=== PATIENT | female | born 1945 | race Caucasian/White ===

== ENCOUNTER 2017-06-10 05:28 | Inpatient (IN) | payer OTHER ==
[2017-06-10] MEDS ORDERED: morphINE PF 5 MG/10 ML INJ IT ONE (05:34)
[2017-06-10] MEDS ORDERED: fentaNYL 100 MCG/2 ML INJ IT ONE (05:34)
[2017-06-10] MEDS ORDERED: ceFAZolin 2 GM/SWFI 2 GM/20 ML SYR IVP ONE (05:34)
[2017-06-10] MEDS ORDERED: LR 1,000 ML IV ONE (05:35)
[2017-06-10] MEDS ORDERED: LIDOCAINE 1% 2 ML INJ ID PRN (05:35)
[2017-06-10] MEDS ORDERED: THROMBIN (BOVINE) 5,000 UNIT VIAL TP ONE (06:44)
[2017-06-10] MEDS ORDERED: CHLORHEXIDINE GLUC HIBICLENS 118 ML BTL TP ONE (06:44)
[2017-06-10] MEDS ORDERED: BACITRACIN 50,000 UNITS/10 ML SYR IRR ONE (06:44)
[2017-06-10] MEDS ORDERED: BUPIVACAINE 0.25% 30 ML SDV ONE (06:44)
--- NOTE | 2017-06-10 06:48 | PDANEPAE ---
ANE History of Present Illness 72 yo female with L leg paresthesia/pain for L4/L5 lum lange and TLIF. 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 - Endocrine History Hx Diabetes: No Hypothyroid: No Hyperthyroid: No Obesity: no Endocrine History Comment: hx of hypothyroidism- resolved - Renal History Hx Renal Disorders: Yes Renal History Comment: 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 hx of reflux - Other Health History Other Health History: wears bilateral hearing aides- not regularly. wears reading glasses - Chronic Pain History Chronic Pain: Yes (left leg pain) - Surgical History Prior Surgeries: knee scope- left 12/2015. l4-5 laminectomy 04/2016. finger surgeries- a few. 25 yrs ago- kidney obstruction repair. bunionectomy- bilateral ANE Review of Systems Review of Systems: - Exercise capacity METS (RN): 4 METS - Systems Constitutional: Reports: no symptoms EENMT: Reports: other (cold sore on nose) Respiratory: Reports: no symptoms ANE Patient History - Allergies Allergies/Adverse Reactions: No Known Allergies Allergy (Verified 05/14/17 15:22) - Home Medications Home Medications: Calcium Carb W/Vit D [Calcium Carb W/Vit D 500/200 (*)] 1,000 mg PO Q2D [Last Taken 06/06/17] Calcium Carb W/Vit D [Calcium Carb W/Vit D 500/200 (*)] 500 mg PO Q2D 05/14/17 [ Last Taken 06/06/17] Cholecalciferol Vit D3 [Vitamin D3 (*)] 2,500 units PO DAILY 05/14/17 [Last Taken 06/06/17] Cyanocobalamin [Vitamin B12 (*)] 2,500 mcg PO DAILY 05/14/17 [Last Taken ] Econazole Nitrate 1 norman TP HS 05/14/17 [Last Taken 06/10/17] Gabapentin [Neurontin 100 MG (*)] 200 mg PO BID@08,12 05/14/17 [Last Taken 06/09] Gabapentin [Neurontin 100 MG (*)] 300 mg PO HS 05/14/17 [Last Taken 06/09/17] Herbals/Supplements -Info Only 1 ea PO DAILY 05/14/17 [Last Taken 06/06/17] Meloxicam 15 mg PO DAILY 05/14/17 [Last Taken 06/04/17] Valacyclovir HCl [Valtrex] 1,000 mg PO BID PRN 05/14/17 [Last Taken 06/09/17] cycloSPORINE 0.05% [Restasis Opht Drops(*)] 1 drop EACHEYE BID 05/14/17 [Last Taken 06/09/17] - NPO status NPO Since - Liquids (Date): 06/10/17 NPO Since - Liquids (Time): 03:30 NPO Since - Solids (Date): 06/09/17 NPO Since - Solids (Time): 19:00 - Anes Hx Anes Hx: no prior problems - Smoking Hx Smoking Status: Never smoked - Alcohol Use Alcohol Use: None - Family Anes Hx Family Anes Hx: none Family Hx Anesthesia Complications: none ANE Labs/Vital Signs - Labs - BMP Creatinine: 0.7 - Vital Signs Blood Pressure: 126/84 Heart Rate: 66 Respiratory Rate: 12 O2 Sat (%): 93 Height: 162.56 cm Weight: 57.153 kg ANE Physical Exam - Airway Neck exam: FROM Mallampati Score: Class 1 Mouth exam: normal dental/mouth exam - Pulmonary Pulmonary: clear to auscultation - Cardiovascular Cardiovascular: regular rate and rhythym - ASA Status ASA Status: II ANE Anesthesia Plan Anesthesia Plan: general endotracheal anesthesia Lines/Monitors: additional IV
[2017-06-10] MEDS ORDERED: ROCURONIUM 50 MG/5 ML VIAL ONE (06:51)
[2017-06-10] MEDS ORDERED: fentaNYL 100 MCG/2 ML INJ ONE ×5 (06:52→11:55)
[2017-06-10] MEDS ORDERED: DEXAMETHASONE 4 MG/ML VIAL ONE ×2 (06:52→08:20)
[2017-06-10] MEDS ORDERED: REMIFENTANIL HCL 1 MG VIAL ONE (06:52)
[2017-06-10] MEDS ORDERED: PROPOFOL/EMULSION 500 MG/50 ML BOTTLE IV ONE ×2 (06:52)
--- NOTE | 2017-06-10 07:02 | PDHPUP ---
History & Physical Update H&P update statement: This history and physical update is based on an assessment of the patient which was completed after admission or registration (within 24 hours), but prior to the surgery/procedure. H&P update: H&P reviewed & patient examined, no change in patient's condition since H&P completed
[2017-06-10] MEDS ORDERED: PHENYLEPHRINE HCL 100 MCG/ML SYR ONE (08:39)
[2017-06-10] MEDS ORDERED: morphINE PF 5 MG/10 ML INJ ONE (09:12)
[2017-06-10] MEDS ORDERED: ONDANSETRON 4 MG/2 ML VIAL ONE (10:13)
[2017-06-10] MEDS ORDERED: PROMETHAZINE HCL 25 MG/ML INJ IVP PRN (10:27)
[2017-06-10] MEDS ORDERED: ALBUTEROL 3 ML DEYVIAL IH PRN (10:27)
[2017-06-10] MEDS ORDERED: OXYCODONE/APAP 5/325 TAB PO PRN (10:27)
[2017-06-10] MEDS ORDERED: NALOXONE HCL 0.4 MG/ML INJ IVP PRN ×2 (10:27→10:37)
[2017-06-10] MEDS ORDERED: LR 500 ML IV PRN (10:27)
[2017-06-10] MEDS ORDERED: ACETAMINOPHEN 500 MG TAB PO PRN (10:27)
[2017-06-10] MEDS ORDERED: NON-FORMULARY NEW DRUG (Valacyclovir Hcl [Valtrex] 1,000 MG) PO PRN (10:36)
[2017-06-10] MEDS ORDERED: ONDANSETRON 4 MG/2 ML VIAL IVP PRN (10:37)
[2017-06-10] MEDS ORDERED: diphenhydrAMINE 25 MG CAP PO PRN (10:37)
[2017-06-10] MEDS ORDERED: LACTULOSE 20 GM/30 ML UDCUP PO PRN (10:37)
[2017-06-10] MEDS ORDERED: morphINE PCA 30 MG/30 ML PCA IV PRN (10:37)
[2017-06-10] MEDS ORDERED: BISACODYL 10 MG SUPP PR PRN (10:37)
[2017-06-10] MEDS ORDERED: DIAZEPAM 5 MG TAB PO PRN (10:41)
--- NOTE | 2017-06-10 10:43 | SOAPPROG ---
SOAP Progress Note Assessment/Plan: Assessment: 72 yo F sp L4/5 TLIF Plan: stable to 3N LSO brace when out of bed lovenox starts 06/11 please call with neuro changes 06/10/17 10:42 Subjective: + back pain, no leg pain, no weakness. Objective: Vital Signs Temp Pulse Resp BP Pulse Ox 36.7 C 66 12 126/84 H 93 06/10/17 07:18 06/10/17 07:18 06/10/17 07:18 06/10/17 07:18 06/10/17 07:18 Awake, alert PERRL, no facial droop SERG x 4 + light touch ICD10 Worksheet Patient Problems: Problems Problem Status Onset Fusion of spine of lumbar region Acute - ICD10 Problem Qualifiers (1) Fusion of spine of lumbar region
[2017-06-10] MEDS ORDERED: NS W/ 20 KCl/L 1,000 ML IV SCH (10:45)
--- NOTE | 2017-06-10 10:51 | POSTANESTH ---
Post Anesthetic Evaluation Cardiovascular Status: Normal, Stable Respiratory Status: Normal, Stable Level of Consciousness/Mental Status: Can Participate in Eval, Mildly Sleepy, Arousable Pain Control: Adequate, Prn Tx Ordered Nausea/Vomiting Control: Adequate, Prn Tx Ordered Complications Possibly Related to Anesthesia: None Noted (Moves ext x4.)
[2017-06-10] MEDS: fentaNYL 100 MCG/2 ML INJ IVP PRN ×5 (10:55→11:56)
[2017-06-10] MEDS ORDERED: DIAZEPAM 10 MG/2 ML SYR ONE (10:58)
[2017-06-10] MEDS: DIAZEPAM 10 MG/2 ML SYR IVP PRN ×5 (10:59→11:56)
[2017-06-10] MEDS ORDERED: GABAPENTIN 100 MG CAP PO SCH ×2 (12:00→21:00)
[2017-06-10] MEDS: MAGNESIUM HYDROXIDE 30 ML UDCUP PO PRN (12:36)
[2017-06-10] MEDS ORDERED: valACYclovir 500 MG TAB PO PRN (12:40)
--- NOTE | 2017-06-10 13:33 | GOP ---
[f rep st] OPERATIVE REPORT DATE OF OPERATION: 06/10/2017 SURGEON: Spencer Lin MD NEUROSURGEON: Spencer Lin MD [employer]OM [employer] LABORER: KALPESH Sewell ANESTHESIA: General endotracheal. 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 PROCEDURE PERFORMED: Removal of posterior nonsegmental (interspinous process fixation device) fixati on and loose PEEK spacer with exploration of spinal fusion at L4-5. L4-5, placement of posterior nons egmental (pedicle screw) fixation and posterolateral fusion with local autograft, bone morphogenic pr otein and morselized autograft. L4-5 posterior/transforaminal lumbar interbody fusion with 2 structur al PEEK interbody spacers, local autograft bone morphogenic protein and morselized allograft. Use of intraoperative microscopy, fluoroscopy and computer volumetric stereotactic navigation with intraope rative neurophysiologic testing. Injection of intrathecal narcotic analgesics and subcutaneous and i ntramuscular local anesthesia for postoperative pain control. FINDINGS: ESTIMATED BLOOD LOSS: 75 cc. 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 She presents now for removal of the old hardware and redo decompression and stabili zation after failing conservative care. DESCRIPTION OF PROCEDURE: After informed consent was obtained, patient was taken to the operating ro om and placed in the prone position on Neo table. The lumbosacral area was prepped and draped in the usual sterile fashion. After fluoroscopic localization of correct levels, the subcutaneous and intramuscular tissues were infiltrated with local anesthesia. A midline linear incision was then cre ated over the L4-5 spinous processes. This was carried down to the fascial layer, which was incised using monopolar electrocautery of the subperiosteal plane along the spinous processes and lamina bila terally. Intraoperative fluoroscopy was again utilized to verify the correct levels. Note, that the anatomy was extremely distorted and there was a very large piece of material in the middle of the sp ine that turned out to be a PEEK spacer between the spinous processes and in conjunction with the int erspinous process clamp which was very loose. All of this was removed and all of the pseudoarthrotic material drilled out down to normal bone tissue. The Danger neuronavigational system was then brou ght in and, using computer volumetric stereotactic navigation, pedicle screws were placed at L4 and L 5 bilaterally. Each individual screw was tested neurophysiologically with monopolar electrostimulati on and interpretation of the potentials by the surgeon. The rods were then placed and secured under distraction, during which time a complete diskectomy was performed with preparation of endplates and placement of 2 structural PEEK interbody spacers, local autograft and bone morphogenic protein along with morselized allograft for an L4-5 posterior/transforaminal lumbar interbody fusion. The screw an d sultana system were then placed in a slight amount of compression in order to facilitate bony union and to minimize the potential for posterior graft migration. Note, that the decompression required an e xtensive amount of drilling and dissection under high-power microscopy in order to adequately decompr ess both the L4 and L5 nerve roots that were severely pinched with this grungy material. The central canal was also thoroughly decompressed. Following placement of the hardware and the interbody fusio n, 200 mcg of Duramorph along with 50 mcg of fentanyl injected intrathecally for postoperative pain c ontrol. The remaining lamina and facet joints on the right side were then drilled out and the residu al local autograft from the facetectomy on the left along with morselized allograft and bone morphoge temi protein was placed out laterally for posterolateral fusion at the L4-5 level. A drain was then p laced. The subcutaneous and intramuscular tissues were re-infiltrated with local anesthesia. The wo und was closed in a layered fashion using interrupted Vicryl sutures followed by Steri-Strips on the skin. COMPLICATIONS: None. DISPOSITION: The patient is currently in the process of being repositioned for extubation. /[id number]/MODL
[2017-06-10] MEDS: ceFAZolin 2 GM/DEXTROSE 100 ML IV SCH ×2 (16:56→21:30)
[2017-06-10] MEDS: POLYETHYLENE GLYCOL 3350 17 GM PKT PO SCH ×2 (16:56→21:41)
[2017-06-10] MEDS ORDERED: ECONAZOLE 1% CREAM TP SCH (21:00)
[2017-06-10] MEDS ORDERED: cycloSPORINE 0.05% 30 DROPERETTE/BOX EACHEYE SCH (21:00)
[2017-06-10] MEDS ORDERED: NON-FORMULARY NEW DRUG TP SCH (21:00)
[2017-06-10] MEDS: FAMOTIDINE 20 MG TAB PO SCH (21:28)
[2017-06-10] MEDS: cycloSPORINE 0.05% 30 DROPERETTE/BOX EACHEYE SCH (21:29)
[2017-06-10] MEDS: morphINE SR 15 MG TAB PO SCH (21:30)
[2017-06-10] MEDS: ECONAZOLE TP SCH (21:31)
[2017-06-10] MEDS: SENNOSIDES/DOCUSATE SODIUM TAB PO SCH (21:41)
[2017-06-11] MEDS: oxyCODONE IR 5 MG TAB PO PRN ×3 (02:53→19:10)
[2017-06-11] MEDS: ONDANSETRON DISINTEGRATING 4 MG TAB PO PRN (02:55)
[2017-06-11 04:56] LABS: PLATELET COUNT 161 10^3/uL (150-400)
[2017-06-11] MEDS: ENOXAPARIN 40 MG/0.4 ML SYR SC SCH (08:19)
[2017-06-11] MEDS: POLYETHYLENE GLYCOL 3350 17 GM PKT PO SCH ×3 (08:19→21:38)
[2017-06-11] MEDS: SENNOSIDES/DOCUSATE SODIUM TAB PO SCH ×2 (08:19→21:38)
[2017-06-11] MEDS: FAMOTIDINE 20 MG TAB PO SCH ×2 (08:19→21:38)
[2017-06-11] MEDS: METHOCARBAMOL 750 MG TAB PO PRN ×2 (08:19→21:45)
[2017-06-11] MEDS: GABAPENTIN 100 MG CAP PO SCH ×2 (08:21→14:10)
--- NOTE | 2017-06-11 08:33 | NEUSURGPN ---
Assessment/Plan: Assessment: 72 yo F sp L4/5 TLIF POD#1 Plan: Pain management RODOLFO drain productive - keep in place. PT/OT Post op xrays pending LSO brace when out of bed lovenox starts 06/11, TEDs, SCDs please call with neuro changes D/w Dr Rawls Subjective: Pt resting in bed, c/o back pain. Objective: AAOx3 NAD VSS MAEx4 Motor 5/5 BLE +LT Rodolfo drain productive Urinary Catheter in Place: No - Physician Discussed Patient with Dr.: Riley Neurosurgery Physical Exam - Vitals, I&O, Labs I and O 06/10/17 06/11/17 06/12/17 05:59 05:59 05:59 Intake Total 2180 600 Output Total 1075 1345 Balance 1105 -745 Weight 57.153 kg Intake: Oral (ml) 610 IV Intake (ml) 1250 IV Infused (ml) 320 600 NS W/ 20 KCl/L 1,000 ml @ 300 600 75 mls/hr IV CONT ESTRELLA Rx #:[id number] ceFAZolin 2 GM/DEXTROSE 20 100 ml @ 200 mls/hr IV Q8HRS ESTRELLA Rx#:[id number] Output: Urine (ml) 500 1300 Bedside Commode 500 Toilet 1300 Estimated Blood Loss (ml) 200 Emesis (ml) 0 RODOLFO Drain Output (ml) 375 45 Left Back Neo Covarrubias 375 45 Other: Intake Quantity Yes Sufficient Number of Voids Bedside Commode 1 Toilet 2 Vital Signs Temp Pulse Resp BP Pulse Ox 36.7 C 71 16 90/54 L 99 06/11/17 07:30 06/11/17 07:30 06/11/17 07:30 06/11/17 07:30 06/11/17 07:30 Laboratory Results 06/11/17 04:30 06/11/17 04:30 ICD10 Worksheet Patient Problems: Problems Problem Status Onset Fusion of spine of lumbar region Acute
[2017-06-11] MEDS: morphINE SR 15 MG TAB PO SCH ×2 (11:06→21:39)
[2017-06-11] MEDS: cycloSPORINE 0.05% 30 DROPERETTE/BOX EACHEYE SCH ×2 (11:07→21:39)
--- NOTE | 2017-06-11 15:18 | ASMTCMCOM ---
CM Note CM Note Notes: 06/11/2017 Case Management Note Met w/pt and her Gabriel [phone]. Pt has strong family support, daughter Rosina and son in law are planning on helping pt when she is home. Pt requested home management supervisor and PT. Pt is recommending home care. Pt has obtained a 4 wheel walker with a platform seat for her recovery. Faxed referrals to [facility] home care agencies. Case Management d/c poc: HomeCare RN and PT pending auth by insurance and acceptance by agencies. Case Management to follow. Date Signed: 06/11/2017 03:17 PM Electronically Signed By:Shelly Taylor RN
[2017-06-11] MEDS: MAGNESIUM HYDROXIDE 30 ML UDCUP PO PRN (18:20)
[2017-06-11] MEDS ORDERED: GABAPENTIN 100 MG CAP PO SCH (21:00)
[2017-06-11] MEDS: ECONAZOLE TP SCH (21:39)
--- NOTE | 2017-06-11 23:15 | CPEKG ---
Heart Rate: 76 RR Interval: 789 P-R Interval: 160 QRSD Interval: 86 QT Interval: 352 QTC Interval: 396 P Muddy: 47 QRS Muddy: 61 T Wave Muddy: 69 EKG Severity - NORMAL ECG - EKG Impression: SINUS RHYTHM EKG Impression: ANTEROLATERAL T-WAVE ABNORMALITIES. EKG Impression: NO PREVIOUS TRACING FOR COMPARISON Electronically Signed By: Marita Mota 12-Jun-2017 14:21:10
[2017-06-11 23:30] LABS: CREATINE KINASE 211 IU/L (0-156)
[2017-06-12] MEDS: oxyCODONE IR 5 MG TAB PO PRN ×2 (04:40→13:52)
[2017-06-12 08:41] VITALS: RESP 16
[2017-06-12] MEDS: morphINE SR 15 MG TAB PO SCH (09:03)
[2017-06-12] MEDS: MAGNESIUM HYDROXIDE 30 ML UDCUP PO PRN (09:04)
[2017-06-12] MEDS: GABAPENTIN 100 MG CAP PO SCH ×2 (09:04→13:13)
[2017-06-12] MEDS: ENOXAPARIN 40 MG/0.4 ML SYR SC SCH (09:04)
[2017-06-12] MEDS: SENNOSIDES/DOCUSATE SODIUM TAB PO SCH (09:04)
[2017-06-12] MEDS: cycloSPORINE 0.05% 30 DROPERETTE/BOX EACHEYE SCH (09:05)
[2017-06-12] MEDS: POLYETHYLENE GLYCOL 3350 17 GM PKT PO SCH ×2 (09:06→16:10)
[2017-06-12] MEDS: FAMOTIDINE 20 MG TAB PO SCH (09:06)
[2017-06-12] MEDS: METHOCARBAMOL 750 MG TAB PO PRN ×2 (10:42→16:45)
--- NOTE | 2017-06-12 10:43 | NEUSURGPN ---
Date of Surgery: 06/10/17 Post Op Day: 2 Assessment/Plan: Assessment: 72 yo F sp L4/5 TLIF POD#2 Plan: -Pain management-change Robaxin to scheduled. Continue with Oxycodone as ordered and attempt to wean from oxycontin -RODOLFO minimal drainage, Dr Rawls would like to leave in place for discharge. Patient to call office on Wednesday to report output -PT/OT -Post op xrays show stable hardware placement -Brace when out of bed -Patient may dc home today with home health/PT -Discussed patient with Dr Rawls Subjective: Patient leg pain improved, expected incisional pain Objective: AAOx3 MAEx4 Motor 5/5 BLE Sensation intact Rodolfo drain present Dressing CDI Neuro Check Frequency: per routine Urinary Catheter in Place: No - Physician Discussed Patient with : Riley Neurosurgery Physical Exam - Vitals, I&O, Labs I and O 06/11/17 06/12/17 06/13/17 05:59 05:59 05:59 Intake Total 2180 2250 Output Total 1075 2206 80 Balance 1105 44 -80 Weight 57.153 kg Intake: Oral (ml) 610 1650 IV Intake (ml) 1250 IV Infused (ml) 320 600 NS W/ 20 KCl/L 1,000 ml @ 300 600 75 mls/hr IV CONT ESTRELLA Rx #:[id number] ceFAZolin 2 GM/DEXTROSE 20 100 ml @ 200 mls/hr IV Q8HRS ESTRELLA Rx#:[id number] Output: Urine (ml) 500 2101 Bedside Commode 500 Toilet 2101 Estimated Blood Loss (ml) 200 Emesis (ml) 0 RODOLFO Drain Output (ml) 375 105 80 Left Back Neo Covarrubias 375 105 80 Other: Intake Quantity Yes Yes Sufficient Number of Voids Bedside Commode 1 Toilet 1 Vital Signs Temp Pulse Resp BP Pulse Ox 36.4 C 78 16 118/57 L 90 L 06/12/17 08:00 06/12/17 08:00 06/12/17 08:00 06/12/17 08:00 06/12/17 08:00 Laboratory Results 06/11/17 04:30 06/11/17 04:30 ICD10 Worksheet Patient Problems: Problems Problem Status Onset Fusion of spine of lumbar region Acute
--- NOTE | 2017-06-12 10:54 | PDIAF ---
- Diagnosis Code Status: Full Code - Medication Management Discharge Medications: Medications to Continue on Transfer Calcium Carb W/Vit D [Calcium Carb W/Vit D 500/200 (*)] 1,000 mg PO Q2D [Last Taken 06/06/17] Calcium Carb W/Vit D [Calcium Carb W/Vit D 500/200 (*)] 500 mg PO Q2D 05/14/17 [ Last Taken 06/06/17] Cholecalciferol Vit D3 [Vitamin D3 (*)] 2,500 units PO DAILY 05/14/17 [Last Taken 06/06/17] Cyanocobalamin [Vitamin B12 (*)] 2,500 mcg PO DAILY 05/14/17 [Last Taken ] Econazole Nitrate 1 norman TP HS 05/14/17 [Last Taken 06/10/17] Gabapentin [Neurontin 100 MG (*)] 200 mg PO BID@08,12 05/14/17 [Last Taken 06/09] Gabapentin [Neurontin 100 MG (*)] 300 mg PO HS 05/14/17 [Last Taken 06/09/17] Herbals/Supplements -Info Only 1 ea PO DAILY 05/14/17 [Last Taken 06/06/17] Valacyclovir HCl [Valtrex] 1,000 mg PO BID PRN 05/14/17 [Last Taken 06/09/17] cycloSPORINE 0.05% [Restasis Opht Drops(*)] 1 drop EACHEYE BID 05/14/17 [Last Taken 06/09/17] Diazepam [Valium 5 MG (*)] 5 mg PO Q6HRS PRN #60 tab 06/12/17 [Last Taken Unknown] Methocarbamol [Robaxin 750 mg (*)] 750 mg PO QID #90 tab 06/12/17 [Last Taken Unknown] morphINE SR [Ms Contin/Oramorph 15 mg (*)] 30 mg PO BID #60 tab 06/12/17 [Last Taken Unknown] oxyCODONE IR [Oxycodone Ir (*)] 5 - 10 mg PO Q4HRS PRN #90 tab 06/12/17 [Last Taken Unknown] Discharge Medications: Refer to the Discharge Home Medication list for PRN reason. PICC Care - Routine: N/A - Orders Services needed: Home Care, Registered Nurse, Physical Therapy, Occupational Therapy Home Care Face to Face: I certify that this patient was under my care and that I had the required [id number] encounter meeting the encounter requirements on the discharge day. My findings support the fact that the patient is homebound as defined in Home Care Face to Face Continued: [facility] Chapter 7 Medicare Benefits Manual 30.1.1 , The condition of the patient is such that there exists a normal inability to leave home and consequently, leaving home would require a considerable and taxing effort. Isolation Type: None Diet Recommendation: no restrictions on diet Diet Texture: Regular Texture Diet Jewell: Not applicable Gabriel Stockings Discontinue Date: when ambulating 100 yards 2-3 times per day Wound Care Instructions: Ok to shower 06/13/17, do not submerge incision in bathtub/hot tub for 3 weeks Activity/Weight Bearing Restrictions: no bending or twisting. do not lift greater than 10 pounds Equipment: wear brace when out of bed - Follow Up Care Current Providers and Referrals: SASHA BAIRES [Other] Spencer Lin MD [Medical Doctor] - follow up in 2 weeks (Call Wednesday to report drain output )
[2017-06-12] MEDS: ONDANSETRON DISINTEGRATING 4 MG TAB PO PRN (13:12)
--- NOTE | 2017-06-12 13:33 | ASDISCHSUM ---
Discharge Information Plan Status:Home with Home Health Medically Cleared to Leave: Discharge Date: D/C Disposition:Home Health Service [facility] D/C Disposition:[id number] Projected Discharge Date:06/12/2017 11:00 AM Transportation at D/C: Discharge Delay Reason: Follow-Up Date:06/12/2017 11:00 AM Discharge Slot: Final Diagnosis: Placement Information Referral Type:*Home Health Care Services Referral ID:[id number] Provider Name:[facility] ([facility]) Address 1:[address] [address] Address 2: City:[place] Selection Factors: State:[place] Patient Contact Information Contact Name:DANIEL Relationship: Address:[address] [facility] City:[place] Alternate Phone: State/Zip Code:[place] [address] Email: Financial Information Financial Class:Medicare Advantage Plans Primary Plan Desc:[employer] CHOICE PPO MEDICARE Primary Plan Number:[id number] Secondary Plan Desc: Secondary Plan Number: Assessment Information [facility] CM Progress Note CM Note CM Note Notes: 06/11/2017 Case Management Note Met w/pt and her Gabriel [phone]. Pt has strong family support, daughter Rosina and son in law are planning on helping pt when she is home. Pt requested group home counselor and PT. Pt is recommending home care. Pt has obtained a 4 wheel walker with a platform seat for her recovery. Faxed referrals to [facility] home care agencies. Case Management d/c poc: HomeCare RN and PT pending auth by insurance and acceptance by agencies. Case Management to follow. Date Signed: 06/11/2017 03:17 PM Electronically Signed By:Shelly Taylor RN [facility] CM Progress Note CM Note CM Note Notes: Pt medically stable for d/c with [facility] RN/OT/PT. Orders sent in [employer] and message left w answering services. Date Signed: 06/12/2017 01:32 PM Electronically Signed By:TANESHA Sarmiento Intervention Information Intervention Type:*Incorrect Registration Date of Service:06/10/2017 12:04 PM Patient Type:Observation Staff Member:LILIBETH Garibay, Sabina Hours: Discipline: Severity: Comment:
--- NOTE | 2017-06-12 13:33 | ASMTCMCOM ---
CM Note CM Note Notes: Pt medically stable for d/c with [facility] RN/OT/PT. Orders sent in [employer] and message left w answering services. Date Signed: 06/12/2017 01:32 PM Electronically Signed By:TANESHA Sarmiento
[2017-06-12 16:28] VITALS: BP 125/69; PULSE 89; TEMP 98.3; O2SAT 92
== END 2017-06-12 17:01 | disposition home health service (06) | DRG 454 ==
LOC: F3N 05:28 → OBSVTOIN 05:28 → F3N 12:19
PROVIDERS: ADMIT Neurological Surgery; ATTEND Neurological Surgery
DX: M96.0 Pseudarthrosis after fusion or arthrodesis (principal); T84.498A Other mechanical complication of other internal orthopedic devices, implants and grafts, initial encounter; M43.16 Spondylolisthesis, lumbar region; M51.36 Other intervertebral disc degeneration, lumbar region; G62.9 Polyneuropathy, unspecified
CPT/HCPCS: 97116-GP; 97161-GP; 97165-GO; 97530-GP; 97535-GO; C1713; C1762; G8978-GP-CJ; G8979-GP-CI; G8980-GP-CI; G8987-GO-CJ; G8988-GO-CI; J0171; J0690; J1100; J1650; J2274; J2370; J2405; J2704; J3010